=== PATIENT | male | born 1960 | race Caucasian/White ===

== ENCOUNTER 2017-02-17 16:06 | Emergency (ER) | payer MEDICARE ==
[2017-02-17 16:23] VITALS: BMI 29.0
[2017-02-17 16:33] VITALS: BP 167/107; PULSE 105; RESP 18; TEMP 98.1; O2SAT 99
--- NOTE | 2017-02-17 16:53 | C.PDOC ---
History Of Present Illness 56 y/o male presents to the emergency department complaining of vague abdominal discomfort x 2 weeks. On arrival to the emergency department patient reports he is currently pain free. Patient has a history of multiple prior evaluations for same. Denies any fever, vomiting, or other complaints. Time Seen by Provider: 02/17/17 16:41 Chief Complaint (Nursing): Abdominal Pain History Per: Patient History/Exam Limitations: no limitations Onset/Duration Of Symptoms: Days (14) Current Symptoms Are (Timing): Gone Location Of Pain/Discomfort: Diffuse Radiation Of Pain To:: None Recent travel outside of the [place]: No Past Medical History Reviewed: Historical Data, Nursing Documentation, Vital Signs Vital Signs: Last Vital Signs Temp 98.1 F 02/17/17 16:25 Pulse 105 H 02/17/17 16:25 Resp 18 02/17/17 16:25 BP 167/107 H 02/17/17 16:25 Pulse Ox 99 02/17/17 16:53 - Medical History PMH: Anxiety, Depression, Diabetes, HTN, Schizophrenia Surgical History: No Surg Hx Family History: States: Unknown Family Hx - Social History Hx Tobacco Use: Yes Hx Alcohol Use: No Hx Substance Use: No - Immunization History Hx Tetanus Toxoid Vaccination: No Hx Influenza Vaccination: No Hx Pneumococcal Vaccination: No Review Of Systems Except As Marked, All Systems Reviewed And Found Negative. Constitutional: Negative for: Fever Gastrointestinal: Positive for: Abdominal Pain (resolved). Negative for: Vomiting Physical Exam - Physical Exam Appears: Non-toxic, No Acute Distress Skin: Normal Color, Warm, Dry Head: Atraumatic, Normacephalic Neck: Normal ROM Chest: Symmetrical Cardiovascular: Rhythm Regular Respiratory: Normal Breath Sounds, No Rales, No Rhonchi, No Wheezing Gastrointestinal/Abdominal: Normal Exam, Soft, No Tenderness, Other (obese) Back: Normal Inspection, No CVA Tenderness Extremity: Normal ROM Extremity: Bilateral: Atraumatic Neurological/Psych: Oriented x3, Normal Speech, Normal Cognition, Other ( bizarre affect) ED Course And Treatment O2 Sat by Pulse Oximetry: 99 (ra) Pulse Ox Interpretation: Normal Medical Decision Making Medical Decision Making: w/u ordered, belly benign pt with prior eval's for same. immediately after IV access placed pt wants d/c to f/u w pmd and/or go to [place] for eval. Pt eloped prior discussion. Disposition Doctor Will See Patient In The: Office Counseled Patient/Family Regarding: Studies Performed - Disposition Disposition: ELOPEMENT - ER ONLY Disposition Time: 16:53 Condition: GOOD - Clinical Impression Clinical Impression: Abdominal discomfort - Scribe Statement The provider has reviewed the documentation as recorded by the Scribe (Marjorie Honeycutt) Provider Attestation: All medical record entries made by the Scribe were at my direction and personally dictated by me. I have reviewed the chart and agree that the record accurately reflects my personal performance of the history, physical exam, medical decision making, and the department course for this patient. I have also personally directed, reviewed, and agree with the discharge instructions and disposition.
== END 2017-02-17 17:00 | disposition left against medical advice (07) ==
LOC: C.ER 16:06
DX: R10.9 Unspecified abdominal pain (principal)